=== PATIENT | male | born 1960 | race Caucasian/White ===

== ENCOUNTER 2019-03-17 22:20 | Emergency (ER) | payer SELFPAY ==
[~2019-03-17] VITALS: Ht 175.3 cm; Wt 90.7 kg
[2019-03-17 22:38] VITALS: BP 140/76
[2019-03-17] MEDS ORDERED: NAPR-514 PO (22:54)
--- NOTE | 2019-03-17 22:55 | PHYS DOC ---
Past Medical History Past Medical History: No Pertinent History Past Surgical History: Other Additional Past Surgical Histo: L5 L1 BACK FUSION Alcohol Use: None Drug Use: None Adult General Chief Complaint Chief Complaint: ANKLE PROBLEM HPI HPI Patient is a 58-year-old male who was in a kneeling position tonight and when he stood up he rolled his right ankle. He complains of pretty severe pain. He states he is recently hurt this ankle. [facility]. He states the pain is most severe when he tries to get up and move around.[] Review of Systems Review of Systems Constitutional: Denies fever or chills [] Eyes: Denies change in visual acuity, redness, or eye pain [] HENT: Denies nasal congestion or sore throat [] Respiratory: Denies cough or shortness of breath [] Cardiovascular: No additional information not addressed in HPI [] GI: Denies abdominal pain, nausea, vomiting, bloody stools or diarrhea [] : Denies dysuria or hematuria [] Musculoskeletal: Per history of present illness[] Integument: Denies rash or skin lesions [] Neurologic: Denies headache, focal weakness or sensory changes [] Endocrine: Denies polyuria or polydipsia [] All other systems were reviewed and found to be within normal limits, except as documented in this note. Allergies Allergies Allergies Coded Allergies Type Severity Reaction Last Updated Verified Penicillins Allergy Intermediate 03/17/19 Yes Physical Exam Physical Exam Constitutional: Well developed, well nourished, mild distress, non-toxic appearance. [] HENT: Normocephalic, atraumatic, bilateral external ears normal, oropharynx moist, no oral exudates, nose normal. [] Eyes: PERRLA, EOMI, conjunctiva normal, no discharge. [] Neck: Normal range of motion, no tenderness, supple, no stridor. [] Cardiovascular:Heart rate regular rhythm, no murmur [] Lungs & Thorax: Bilateral breath sounds clear to auscultation [] Abdomen: Bowel sounds normal, soft, no tenderness, no masses, no pulsatile masses. [] Skin: Warm, dry, no erythema, no rash. [] Back: No tenderness, no CVA tenderness. [] Extremities: Right ankle has some swelling over the lateral malleolus however there is no ecchymosis or obvious deformity[] Neurologic: Alert and oriented X 3, normal motor function, normal sensory function, no focal deficits noted. [] Psychologic: Anxious. [] Current Patient Data Vital Signs Vital Signs Date Time Temp Pulse Resp B/P (MAP) Pulse Ox O2 Delivery O2 Flow Rate FiO2 03/17/19 22:38 97.6 76 16 140/76 (97) 96 Room Air 97.6 EKG EKG [] Radiology/Procedures Radiology/Procedures Right ankle x-ray: Negative exam as interpreted by me[] Course & Med Decision Making Course & Med Decision Making Pertinent Labs and Imaging studies reviewed. (See chart for details) [] Dragon Disclaimer Dragon Disclaimer This electronic medical record was generated, in whole or in part, using a voice recognition dictation system. Departure Departure Impression: Primary Impression: Right ankle sprain Disposition: HOME, SELF-CARE Condition: STABLE Patient Instructions: Ankle Sprain, Ankle Sprain, Acute, with Phase I Rehab- [facility], Ankle Sprain, Acute, with Phase II Rehab-[facility] Scripts Naproxen (NAPROXEN) 500 Mg Tablet 1 TAB PO BID PRN for PAIN, #30 TAB 1 Refill Prov: GALLITO BASS DO 03/17/19 Problem Qualifiers Primary Impression: Right ankle sprain Encounter type: initial encounter Involved ligament of ankle: tibiofibular ligament Qualified Codes: S93.431A - Sprain of tibiofibular ligament of right ankle, initial encounter GALLITO BASS DO Mar 17, 2019 22:55
--- NOTE | 2019-03-17 23:22 | RAD ---
Exam: Right ankle 3 views INDICATION: Trauma TECHNIQUE: Frontal, lateral and oblique views of the right ankle Comparisons: None FINDINGS: Diffuse soft tissue swelling at the ankle is noted. Bone mineralization is normal. No acute or healed fractures are identified. Joint spaces are well-maintained. IMPRESSION: Diffuse soft tissue swelling surrounding the ankle without underlying osseous abnormality identified. Electronically signed by: Missy Moura MD (03/17/2019 11:19 PM) [facility]
== END 2019-03-17 23:16 | disposition home or self-care (01) ==
LOC: ER 22:20
DX: S93.431A Sprain of tibiofibular ligament of right ankle, initial encounter (principal); Z98.890 Other specified postprocedural states; Z88.0 Allergy status to penicillin; X50.1XXA Overexertion from prolonged static or awkward postures, initial encounter; Y93.89 Activity, other specified; Y92.89 Other specified places as the place of occurrence of the external cause; Y99.8 Other external cause status
CPT/HCPCS: 73610; 96374; 99284